=== PATIENT | male | born 2005 | race Two or more races ===

== ENCOUNTER 2024-06-08 09:18 | Emergency (ER) | payer MEDICAID ==
[~2024-06-08] VITALS: Ht 185.4 cm; Wt 77.5 kg
[2024-06-08 09:53] VITALS: BP 115/87; PULSE 118; RESP 16; TEMP 97.9; O2SAT 98
--- NOTE | 2024-06-08 10:19 | ED.PDOC ---
History of Present Illness HPI Comments A 18 YEAR OLD MALE PRESENTS TO THE ED WITH CHIEF COMPLAINT OF FLU-LIKE ILLNESS. PATIENT REPORTS THAT HE HAS BEEN EXPERIENCING A FEVER WITH ASSOCIATED NAUSEA AND VOMITING SINCE YESTERDAY AT WORK ALONG WITH A SORE THROAT, NASAL CONGESTION, AND BODY ACHES SINCE THIS MORNING. PATIENT DENIES ANY DIARRHEA, ABDOMINAL PAIN, CHILLS, CHEST PAIN, SOB, OR COUGH. NO OTHER SYMPTOMS REPORTED AT THIS TIME OF CARE. Chief Complaint: Sore Throat Time Seen by MD: 10:17 Primary Care Provider: MIO Thomas Notes: Nurses Notes, Medications, Allergies Allergies: Coded Allergies: NO KNOWN ALLERGIES (Unverified , 06/08/24) Home Meds Active Scripts Ibuprofen (Ibuprofen) 600 Mg Tab, 1 TAB PO QID, #30 TAB Prov:CARLOS ENRIQUE RAMIREZ 06/08/24 Azithromycin (Azithromycin) 500 Mg Tab, 1 TAB PO DAILY, #5 TAB Prov:CARLOS ENRIQUE RAMIREZ 06/08/24 Information Source: Patient Mode of Arrival: Ambulatory Severity: Moderate Timing: Days Duration: Since onset Prehospital treatment: None Medication Refill: For: Other (THROAT PAIN AND BODY ACHING ) Past Medical History PAST MEDICAL HISTORY: Denies Surgical History: Denies all surgeries Family History Family History: Reviewed,noncontributory to illness Social History Smoker: Non-Smoker Alcohol: Denies ETOH Use Drugs: Denies Drug Use Lives In: Home Constitutional: reports: fever, others (BODY ACHES); denies: chills, diaphoresis, fatigue, malaise, sweats, weakness EENTM: reports: nose congestion, throat pain, throat swelling; denies: blurred vision, double vision, ear bleeding, ear discharge, ear drainage, ear pain, ear ringing, eye pain, eye redness, hearing loss, mouth pain, mouth swelling, nasal discharge, nose bleeding, nose pain, photophobia, tearing, voice changes, others Respiratory: denies: cough, hemoptysis, orthopnea, SOB at rest, shortness of breath, SOB with excertion, stridor, wheezing, others Cardiovascular: denies: chest pain, dizzy spells, diaphoresis, Dyspnea on exert ion, edema, irregular heart beat, left arm pain, lightheadedness, palpitations, PND, syncope, others Gastrointestinal: reports: nausea, vomiting; denies: abdomen distended, abdominal pain, blood streaked bowels, constipated, diarrhea, dysphagia, difficulty swallowing, hematemesis, melena, poor appetite, poor fluid intake, rectal bleeding, rectal pain, others Genitourinary: denies: burning, dysuria, flank pain, frequency, hematuria, incontinence, penile discharge, penile sore, pain, testicle pain, testicle swelling, urgency, others Neurological: denies: dizziness, fainting, headache, left sided numbness, left sided weakness, numbness, paresthesia, pre-existing deficit, right sided numbness, right sided weakness, seizure, speech problems, tingling, tremors, weakness, others Musculoskeletal: denies: back pain, gout, joint pain, joint swelling, muscle pain, muscle stiffness, neck pain, others Integumetry: denies: bruises, change in color, change in hair/nails, dryness, laceration, lesions, lumps, rash, wounds, others Allergic/Immunocompromised: denies: Difficulty Healing, Frequent Infections, Hives, Itching, others Hematologic/Lymphatic: denies: anemia, blood clots, easy bleeding, easy bruising, swollen glands, others Endocrine: denies: excessive hunger, excessive sweating, excessive thirst, excessive urination, flushing, intolerance to cold, intolerance to heat, unexplained weight gain, unexplained weight loss, others Psychiatric: denies: anxiety, bipolar disorder, depression, hopeless, panic disorder, schizophrenia, sleepless, suicidal, others All Other Systems: Reviewed and Negative Physical Exam General Appearance: No Apparent Distress, Normal HEENT: PERRL/EOMI, Pharyngeal Erythema (TONSILLAR SWELLING, NO EXUDATES. ), TMs Normal Neck: Full Range of Motion, Non-Tender, Normal, Normal Inspection Respiratory: Chest Non-Tender, Lungs Clear, No Accessory Muscle Use, No Respiratory Distress, Normal Breath Sounds Cardiovascular: No Edema, No JVD, No Murmur, No Gallop, Normal Peripheral Pulses, Regular Rate/Rhythm Breast Exam: Deferred Gastrointestinal: No Organomegaly, Non Tender, No Pulsatile Mass, Normal Bowel Sounds, Soft Genitalia: Deferred Pelvic: Deferred Rectal: Deferred Extremities: No calf tenderness, Normal capillary refill, Normal inspection, Normal range of motion, Non-tender, No pedal edema Musculoskeletal : Apperance: Normal Neurologic: Alert, 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 Was a procedure done?: No Differential Dx Considerations may include: ACUTE TONSILLITIS, PHARYNGITIS, URI X-Ray, Labs, Meds, VS Vital Signs Date Time Temp Pulse Resp B/P (MAP) Pulse Ox O2 Delivery O2 Flow Rate FiO2 06/08/24 09:53 118 16 98 Room Air 06/08/24 09:53 97.9 118 16 115/87 (96) 98 97.9 06/08/24 09:27 97.9 118 16 115/87 (96) 98 Current Medications Medications (Trade) Dose Ordered Sig/Bear Route Start Time Stop Time Status Last Admin Ceftriaxone Sodium (Rocephin) 1,000 mg ONCE ONCE IM 06/08/24 10:15 06/08/24 10:16 DC 06/08/24 10:33 X-Ray, Labs, Meds, VS Comment EXTERNAL MEDICAL RECORDS REVIEWED: [NONE] INDEPENDENT HISTORIANS: [NONE] SOCIAL DETERMINANTS OF HEALTH: [NONE] LABS ORDERED: NONE REVIEWED AND INTERPRETED RESULTS: NONE IMAGING ORDERED: NONE TREATMENTS ORDERED: ROCEPHIN 1G IM PROCEDURES PERFORMED: NONE CRITICAL CARE TIME: NONE I HAVE DISCUSSED THE PATIENT WITH THE ATTENDING PHYSICIAN DR. WARE AND HE AG VILMA WITH THE PATIENT'S PLAN OF CARE AND DISPOSITION. BASED ON HISTORY OF PRESENT ILLNESS, AND PHYSICAL EXAM, PATIENT WILL BE D ISCHARGED HOME. DISCUSSED PLAN FOR DISCHARGE HOME WITH RX. MEDICATION WARNINGS GIVEN. SHARED DECISION MAKING: DISCUSSED WITH PATIENT THAT THEIR WORKUP WAS NORMAL. PATIENT INSTRUCTED TO FOLLOW UP WITH PRIMARY CARE PROVIDER IN 1-2 DAYS FOR RE- EVALUATION OF SYMPTOMS. PATIENT VERBALIZES UNDERSTANDING TO RETURN TO ED FOR NEW OR WORSENING SYMPTOMS OR IF FOLLOW UP WITH PCP CANNOT BE OBTAINED. PATIENT FEELS COMFORTABLE GOING HOME AT THIS TIME. ALL QUESTIONS ADDRESSED AT TIME OF DISCHARGE. Time of 1ST Reevaluation: 11:00 Reevaluation 1ST: Improved Patient Education/Counseling: Diagnosis, Treatment, Need For Follow Up Family Education/Counseling: Diagnosis, Treatment, No Family Present Medical Screening: No EMC Exist At This Time Departure 1 Departure Time of Disposition: 11:00 Impression: Primary Impression: Acute tonsillitis Qualified Codes: J03.90 - Acute tonsillitis, unspecified Disposition: HOME / SELF CARE / HOMELESS Condition: Stable Additional Instructions: FOLLOW-UP WITH PCP IN 1 TO 2 DAYS. TAKE MEDICATIONS PRESCRIBED. RETURN TO ED FOR ANY NEW OR WORSENING SYMPTOMS. e-Prescriptions Ibuprofen (Ibuprofen) 600 Mg Tab 1 TAB PO QID, #30 TAB Prov: CARLOS ENRIQUE RAMIREZ 06/08/24 Azithromycin (Azithromycin) 500 Mg Tab 1 TAB PO DAILY, #5 TAB Prov: CARLOS ENRIQUE RAMIREZ 06/08/24 Discharged With: Self Critical Care Note Critical Care Time?: No Stability Stability form required: No Heart Score Heart Score: Heart Score Response (Comments) Value History N/A 0 EKG N/A 0 Age N/A 0 Risk Factors N/A 0 Troponin N/A 0 Total 0 I personally scribed for CARLOS ENRIQUE RAMIREZ ([email or web address]) on 06/08/24 at 10:19. Electronically submitted by Huang Hurst ([email or web address]). CARLOS ENRIQUE RAMIREZ Jun 08, 2024 10:19
[2024-06-08] MEDS: cefTRIAXone SOD 1,000 MG VL IM ONE (10:33)
[2024-06-08] MEDS ORDERED: AZIT500T66 PO (10:37)
[2024-06-08] MEDS ORDERED: IBUP-1454 PO (10:37)
== END 2024-06-08 10:42 | disposition home or self-care (01) ==
LOC: ER 09:18
DX: J03.90 Acute tonsillitis, unspecified (principal); Z79.899 Other long term (current) drug therapy
CPT/HCPCS: 96372; 99283; J0696

== ENCOUNTER 2024-06-11 04:57 | Emergency (ER) | payer MEDICAID ==
[~2024-06-11] VITALS: Ht 185.4 cm; Wt 73.1 kg
[~2024-06-11 04:57] MED LIST: AZIT500T66 PO; IBUP-1454 PO
--- NOTE | 2024-06-11 05:39 | ED.PDOC ---
History of Present Illness HPI Comments 18 y/o M presents with c/o chest, back, right-arm, and throat pain, nausea, vomiting, diarrhea, and fever, today. Patient is a poor historian and endorses on having symptoms since 06/08/24. Patient states on having sternal chest pain that radiates to bother his right arm and back and diarrhea being green in a ppearance. He comments on being evaluated for symptoms that same day as initial onset at ED and being discharged with acute tonsillitis diagnosis and having no relief with prescription medication given. Patient denies having any shortness of breath, palpitations, abdominal pain, urinary symptoms, chills, or other associated symptoms or modifiers at this time. Chief Complaint: Chest Pain Time Seen by MD: 04:55 Primary Care Provider: MIO Thomas Notes: Nurses Notes, Medications, Allergies Allergies: Coded Allergies: NO KNOWN ALLERGIES (Unverified , 06/08/24) Home Meds Active Scripts Ibuprofen (Ibuprofen) 600 Mg Tab, 1 TAB PO QID, #30 TAB Prov:CARLOS ENRIQUE RAMIREZ 06/08/24 Azithromycin (Azithromycin) 500 Mg Tab, 1 TAB PO DAILY, #5 TAB Prov:CARLOS ENRIQUE RAMIREZ 06/08/24 Information Source: Patient Mode of Arrival: Ambulatory Severity: Moderate Timing: Days Duration: Since onset Prehospital treatment: Other (see HPI) Past Medical History PAST MEDICAL HISTORY: Denies Surgical History: Denies all surgeries Family History Family History: Reviewed,noncontributory to illness Social History Smoker: Non-Smoker Alcohol: Denies ETOH Use Drugs: Denies Drug Use Lives In: Home Constitutional: reports: fever EENTM: reports: throat pain Cardiovascular: reports: chest pain Gastrointestinal: reports: diarrhea, nausea, vomiting Musculoskeletal: reports: back pain, others (right arm pain ) All Other Systems: Reviewed and Negative (negative unless otherwise stated above or in HPI) Physical Exam General Appearance: No Apparent Distress, Normal HEENT: Normal ENT Inspection, Pharynx Normal, TMs Normal Neck: Full Range of Motion, Non-Tender, Normal, Normal Inspection Respiratory: Chest Non-Tender, Lungs Clear, No Accessory Muscle Use, No Respiratory Distress, Normal Breath Sounds Cardiovascular: No Edema, No JVD, No Murmur, No Gallop, Normal Peripheral Pulses, Regular Rate/Rhythm Breast Exam: Deferred Gastrointestinal: No Organomegaly, Non Tender, No Pulsatile Mass, Normal Bowel Sounds, Soft Genitalia: Deferred Pelvic: Deferred Rectal: Deferred Extremities: No calf tenderness, Normal capillary refill, Normal inspection, Normal range of motion, Non-tender, No pedal edema Musculoskeletal : Apperance: Normal Neurologic: Alert, 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 Was a procedure done?: No EKG EKG : Pulse Rate (adult): [address] [place]: Normal Cardiac Rhythm: NSR Block: None Hypertrophy: None ST: Normal Differential Dx Considerations may include: NC, ACS, PE, URI, viral syndrome, musculoskeletal pain, anxiety, gastritis, gastroenteritis, spoiled food X-Ray, Labs, Meds, VS Vital Signs Date Time Temp Pulse Resp B/P (MAP) Pulse Ox O2 Delivery O2 Flow Rate FiO2 06/11/24 08:41 98.9 77 16 155/79 (104) 98 98.9 06/11/24 08:36 77 16 98 Room Air* 0 21 06/11/24 06:31 99.9 06/11/24 06:00 99.9 120 20 136/99 (111) 96 99.9 06/11/24 06:00 120 20 96 Room Air* 0 21 06/11/24 05:39 77 06/11/24 05:30 98.9 101 18 131/92 (105) 95 06/11/24 05:02 77 Lab Test 06/11/24 06:17 06/11/24 06:00 Range/Units White Blood Count 6.4 4.4-10.8 10^3/uL Red Blood Count 5.70 4.5-5.90 10^6/uL Hemoglobin 17.3 13.5-17.5 g/dL Hematocrit 52.3 41.0-53.0 % Mean Corpuscular Volume 91.8 80.0-100.0 fL Mean Corpuscular Hemoglobin 30.3 28.0-32.0 pg Mean Corpuscular Hemoglobin Concent 33.0 32.0-36.0 g/dL Red Cell Distribution Width 13.7 11.8-14.3 % Platelet Count 181 140-450 10^3/uL Mean Platelet Volume 9.6 6.9-10.8 fL Neutrophils (%) (Auto) 79.8 37.0-80.0 % Lymphocytes (%) (Auto) 9.7 L 10.0-50.0 % Monocytes (%) (Auto) 10.3 0.0-12.0 % Eosinophils (%) (Auto) 0.0 0.0-7.0 % Basophils (%) (Auto) 0.2 0.0-2.0 % Neutrophils # (Auto) 5.1 1.6-8.6 10 ^3/uL Lymphocytes # (Auto) 0.6 0.4-5.4 10 ^3/uL Monocytes # (Auto) 0.7 0-1.3 10 ^3/uL Eosinophils # (Auto) 0 0-0.8 10 ^3/uL Basophils # (Auto) 0 0-0.2 10 ^3/uL Nucleated Red Blood Cells 0.4 % Sodium Level 141 136-145 mmol/L Potassium Level 4.3 3.5-5.1 mmol/L Chloride Level 106 98-107 mmol/L Carbon Dioxide Level 21 20-31 mmol/L Anion Gap 14 5-15 Blood Urea Nitrogen 14 9-23 mg/dL Creatinine 1.47 H 0.700-1.30 mg/dL Glomerular Filtration Rate Calc 70 >90 mL/min BUN/Creatinine Ratio 9.5 L 10.0-20.0 Serum Glucose 104 74-106 mg/dL Calcium Level 9.6 8.7-10.4 mg/dL Total Bilirubin 0.3 0.2-1.0 mg/dL Aspartate Amino Transferase (AST) 31 13-40 U/L Alanine Aminotransferase (ALT) 20 7-40 U/L Alkaline Phosphatase 69 46-116 U/L Total Protein 7.7 5.7-8.2 g/dL Albumin 5.3 H 3.2-4.8 g/dL Troponin I High Sensitivity < 3 L </=54 ng/L Current Medications Medications (Trade) Dose Ordered Sig/Bear Route Start Time Stop Time Status Last Admin Sodium Chloride 1,000 ml @ 1,000 mls/hr Q1H ONCE IV 06/11/24 05:15 06/11/24 06:14 DC 06/11/24 06:00 Ondansetron HCl (Zofran) 4 mg ONCE ONCE IV 06/11/24 05:15 06/11/24 05:16 DC 06/11/24 06:02 Ketorolac Tromethamine (Toradol Injection) 15 mg ONCE ONCE IV 06/11/24 05:15 06/11/24 05:16 DC 06/11/24 06:01 Acetaminophen (Tylenol Tablet) 1,000 mg ONCE ONCE PO 06/11/24 06:00 06/11/24 06:01 DC 06/11/24 06:31 Time of 1ST Reevaluation: 05:25 Reevaluation 1ST: Unchanged Patient Education/Counseling: Diagnosis, Treatment Family Education/Counseling: No Family Present Departure 1 Departure Time of Disposition: 08:02 (Patient likely with a viral syndrome. We will discharge patient with outpatient follow up) Impression: Primary Impression: Viral syndrome Disposition: HOME / SELF CARE / HOMELESS Condition: Stable Additional Instructions: You likely have a viral illness. It is important to stay well rested and well hydrated. You can take Tylenol and Motrin as needed for pain and fever. For a sore throat you can drink warm tea with honey. You can take [id number] pseudoephedrine for nasal congestion. He should follow up with your regular doctor within 1 week to ensure you are doing better. If your symptoms worsen or you have any other concerns please return to the emergency room. Discharged With: Self Critical Care Note Critical Care Time?: No Stability Stability form required: No Heart Score Heart Score: Heart Score Response (Comments) Value History N/A 0 EKG N/A 0 Age N/A 0 Risk Factors N/A 0 Troponin N/A 0 Total 0 I personally scribed for PAULINE MAYORGA MD ([email or web address]) on 06/11/24 at 05:39. Electronically submitted by Spencer Garrett ([email or web address]). PAULINE MAYORGA MD Jun 11, 2024 05:39 PABLO VASQUEZ MD Jun 11, 2024 08:02
[2024-06-11 06:00] VITALS: PULSE 120; RESP 20; O2SAT 96
[2024-06-11] MEDS: SODIUM CHLORIDE 0.9% 1,000 ML IV ONE (06:00)
[2024-06-11] MEDS: KETOROLAC TROMETH 30 MG/ML 1ML VIAL IV ONE (06:01)
[2024-06-11] MEDS: ONDANSETRON HCL 4 MG/2 ML VIAL IV ONE (06:02)
[2024-06-11] MEDS: ACETAMINOPHEN 325 MG TAB PO ONE (06:31)
[2024-06-11 06:37] LABS: Basophils # (auto) 0 10 ^3/uL (0-0.2); Basophils % (auto) 0.2 % (0.0-2.0); Eosinophils # (auto) 0 10 ^3/uL (0-0.8); Hematocrit 52.3 % (41.0-53.0); Hemoglobin 17.3 g/dL (13.5-17.5); Lymphocytes # (auto) 0.6 10 ^3/uL (0.4-5.4); Lymphocytes % (auto) 9.7 % (10.0-50.0); Mean Corpuscular Hemoglobin 30.3 pg (28.0-32.0); Mean Corpuscular Volume 91.8 fL (80.0-100.0); Monocytes # (auto) 0.7 10 ^3/uL (0-1.3); Monocytes % (auto) 10.3 % (0.0-12.0); Neutrophils # (auto) 5.1 10 ^3/uL (1.6-8.6); Neutrophils % (auto) 79.8 % (37.0-80.0); Nucleated Red Blood Cells % 0.4 %; Platelet Count (auto) 181 10^3/uL (140-450); Red Cell Distribution Width 13.7 % (11.8-14.3); White Blood Cell 6.4 10^3/uL (4.4-10.8)
[2024-06-11 06:53] LABS: Alanine Aminotransferase 20 U/L (7-40); Alkaline Phosphatase 69 U/L (46-116); Anion Gap 14 (5-15); Aspartate Aminotransferase 31 U/L (13-40); BUN/Creatinine Ratio 9.5 (10.0-20.0); Blood Urea Nitrogen 14 mg/dL (9-23); Calcium 9.6 mg/dL (8.7-10.4); Carbon Dioxide 21 mmol/L (20-31); Chloride 106 mmol/L (98-107); Glucose 104 mg/dL (74-106); Potassium 4.3 mmol/L (3.5-5.1); Sodium 141 mmol/L (136-145)
[2024-06-11 06:54] LABS: Total Protein 7.7 g/dL (5.7-8.2)
[2024-06-11 07:00] LABS: Albumin 5.3 g/dL (3.2-4.8); Bilirubin, Total 0.3 mg/dL (0.2-1.0)
[2024-06-11 08:36] VITALS: PULSE 77; RESP 16; O2SAT 98
[2024-06-11 08:41] VITALS: BP 155/79; PULSE 77; RESP 16; TEMP 98.9; O2SAT 98
--- NOTE | 2024-06-11 21:16 | ECG ---
[facility] Test Date: 2024-06-11 Test Time: 05:02:23 Pat Name: BRIAN BRINK Department: ER Room: Gender: M Engagement Executive: : 2005 Requested By: PAULINE MAYORGA Order Number: [id number] Reading MD: Measurements Intervals [place] Rate: 77 P: 56 MN: 127 QRS: 69 QRSD: 76 T: 56 QT: 354 QTc: 401 Interpretive Statements Sinus rhythm RSR' in V1 or V2, probably normal variant Please click the below link to view image of tracing.
== END 2024-06-11 08:44 | disposition home or self-care (01) ==
LOC: ER 04:57
DX: B34.9 Viral infection, unspecified (principal); R50.9 Fever, unspecified; R19.7 Diarrhea, unspecified; R11.2 Nausea with vomiting, unspecified; R07.89 Other chest pain; Z79.899 Other long term (current) drug therapy
CPT/HCPCS: 36415; 80053; 84484; 85025; 93005; 96361; 96374; 96375; 99284; J1885; J2405; J7030